=== PATIENT | female | born 1990 | race American Indian/Alaskan Native ===

== ENCOUNTER 2019-04-28 18:54 | Emergency (ER) | payer SELFPAY ==
--- NOTE | 2019-04-28 19:24 | Emergency Department Report ---
Blank Doc - Documentation Documentation: This is a 29-year-old female that presents with vaginal bleeding. Stated had a positive test. This initial assessment/diagnostic orders/clinical plan/treatment(s) is/are subject to change based on patient's health status, clinical progression and re- assessment by fellow clinical providers in the ED. Further treatment and workup at subsequent clinical providers discretion. Patient/guardians urged not to elope from the ED as their condition may be serious if not clinically assessed and managed. Initial orders include: 1- Patient sent to [facility] for further evaluation and treatment 2- labs 3- UA
[2019-04-28 19:45] LABS: Basophils # (Auto) 0.1 K/mm3 (0.0-0.1); Basophils % (Auto) 0.9 % (0.0-1.8); Eosinophils # (Auto) 0.1 K/mm3 (0.0-0.4); Eosinophils % (Auto) 1.7 % (0.0-4.3); Hematocrit 36.2 % (30.3-42.9); Hemoglobin 12.1 gm/dl (10.1-14.3); Lymphocytes # (Auto) 2.4 K/mm3 (1.2-5.4); Lymphocytes % (Auto) 35.8 % (13.4-35.0); Mean Corpuscular HGB Conc 34 % (30-34); Mean Corpuscular Volume 87 fl (79-97); Monocytes # (Auto) 0.3 K/mm3 (0.0-0.8); Monocytes % (Auto) 5.2 % (0.0-7.3); Platelet Count 369 K/mm3 (140-440); Red Blood Count 4.14 M/mm3 (3.65-5.03); Red Cell Distribution Width 15.8 % (13.2-15.2)
[2019-04-28 20:38] LABS: Bilirubin,Urine NEG (Negative); Blood,Urine SM (Negative); Color,Urine Yellow (Yellow); Mucus,Urine FEW /HPF; Protein,Urine <15 mg/dL mg/dL (Negative); Urobilinogen,Urine < 2.0 mg/dL (<2.0)
--- NOTE | 2019-04-28 20:44 | Emergency Department Report ---
ED HPI - General Chief complaint: Vaginal Bleeding Stated complaint: POSS MISCARRIAGE/VG BLEEDING Time Seen by Provider: 04/28/19 19:23 Source: patient Mode of arrival: Ambulatory Limitations: No Limitations - History of Present Illness Initial comments: Patient is a 29-year-old femalein acute past history is presenting with, occasional with her . Patient states her last missed her period was 03/21/2019. Patient's states that earlier this morning she started having some spotting which has progressed 2. Heavy menstrual flow. Patient is not sure of her dates has not had OF YET THIS . PATIENT STATES SHE DOES HAVE SOME MILD CRAMPINESS IN THE SUPRAPUBIC REGION. PATIENT STATES THAT THERE WERE SMALL AMOUNT OF CLOTS EXPRESSED. PATIENT DENIES FEVERS CHILLS NAUSEA VOMITING DIARRHEA. - Related Data Previous Rx's Medication Instructions Recorded Last Taken Type Nitrofurantoin [place]/M-Cryst 100 mg PO Q12HR #14 capsule 04/28/19 Unknown Rx [Macrobid CAP] Allergies Allergy/AdvReac Type Severity Reaction Status Date / Time banana Allergy Itching Verified 04/28/19 18:58 nut - unspecified Allergy Hives Verified 04/28/19 18:58 ED Review of Systems ROS: Stated complaint: POSS MISCARRIAGE/VG BLEEDING Other details as noted in HPI Comment: All other systems reviewed and negative ED Past Medical Hx - Past Medical History Previous Medical History?: No Hx Hypertension: No Hx Diabetes: No Hx Deep Vein Thrombosis: No Hx Renal Disease: No Hx Sickle Cell Disease: No Hx Seizures: No Hx Asthma: No Hx HIV: No - Surgical History Past Surgical History?: No - Social History Smoking Status: Current Every Day Smoker Substance Use Type: None - Medications Home Medications: Home Medications Medication Instructions Recorded Confirmed Last Taken Type Nitrofurantoin [place]/M-Cryst 100 mg PO Q12HR #14 capsule 04/28/19 Unknown Rx [Macrobid CAP] ED Physical Exam - General Limitations: No Limitations General appearance: alert, in no apparent distress - Head Head exam: Present: atraumatic, normocephalic - Eye Eye exam: Present: normal appearance - ENT ENT exam: Present: mucous membranes moist - Neck Neck exam: Present: normal inspection - Respiratory Respiratory exam: Present: normal lung sounds bilaterally. Absent: respiratory distress, wheezes, rales, rhonchi - Cardiovascular Cardiovascular Exam: Present: regular rate, normal rhythm. Absent: systolic murmur, diastolic murmur, rubs, gallop - GI/Abdominal GI/Abdominal exam: Present: soft, tenderness (mild tenderness in the suprapubic region), normal bowel sounds. Absent: distended, guarding, rebound - Extremities Exam Extremities exam: Present: normal inspection - Back Exam Back exam: Present: normal inspection - Neurological Exam Neurological exam: Present: alert, oriented X3 - Psychiatric Psychiatric exam: Present: normal affect, normal mood - Skin Skin exam: Present: warm, dry, intact, normal color. Absent: rash ED Course Vital Signs 04/28/19 19:24 Temperature 99 F Pulse Rate 96 H Respiratory 14 Rate Blood Pressure 136/86 O2 Sat by Pulse 100 Oximetry ED Medical Decision Making - Lab Data Result diagrams: 04/28/19 19:29 Lab Results 04/28/19 04/28/19 04/28/19 Range/Units 19:21 19:29 19:29 WBC 6.6 (4.5-11.0) K/mm3 RBC 4.14 (3.65-5.03) M/mm3 Hgb 12.1 (10.1-14.3) gm/dl Hct 36.2 (30.3-42.9) % MCV 87 (79-97) fl MCH 29 (28-32) pg MCHC 34 (30-34) % RDW 15.8 H (13.2-15.2) % Plt Count 369 (140-440) K/mm3 Lymph % (Auto) 35.8 H (13.4-35.0) % [place] % (Auto) 5.2 (0.0-7.3) % Eos % (Auto) 1.7 (0.0-4.3) % Baso % (Auto) 0.9 (0.0-1.8) % Lymph # 2.4 (1.2-5.4) K/mm3 [place] # 0.3 (0.0-0.8) K/mm3 Eos # 0.1 (0.0-0.4) K/mm3 Baso # 0.1 (0.0-0.1) K/mm3 Seg Neutrophils % 56.4 (40.0-70.0) % Seg Neutrophils # 3.7 (1.8-7.7) K/mm3 HCG, Quant 13402 H (0-4) mIU/mL Urine Color (Yellow) Urine Turbidity (Clear) Urine pH (5.0-7.0) Ur Specific [place] (1.003-1.030) Urine Protein (Negative) mg/dL Urine Glucose (UA) (Negative) mg/dL Urine Ketones (Negative) mg/dL Urine Blood (Negative) Urine Nitrite (Negative) Urine Bilirubin (Negative) Urine Urobilinogen (<2.0) mg/dL Ur Leukocyte Esterase (Negative) Urine WBC (Auto) (0.0-6.0) /HPF Urine RBC (Auto) (0.0-6.0) /HPF U Epithel Cells (Auto) (0-13.0) /HPF Urine Mucus /HPF Blood Type A POSITIVE 04/28/19 Range/Units 20:00 WBC (4.5-11.0) K/mm3 RBC (3.65-5.03) M/mm3 Hgb (10.1-14.3) gm/dl Hct (30.3-42.9) % MCV (79-97) fl MCH (28-32) pg MCHC (30-34) % RDW (13.2-15.2) % Plt Count (140-440) K/mm3 Lymph % (Auto) (13.4-35.0) % [place] % (Auto) (0.0-7.3) % Eos % (Auto) (0.0-4.3) % Baso % (Auto) (0.0-1.8) % Lymph # (1.2-5.4) K/mm3 [place] # (0.0-0.8) K/mm3 Eos # (0.0-0.4) K/mm3 Baso # (0.0-0.1) K/mm3 Seg Neutrophils % (40.0-70.0) % Seg Neutrophils # (1.8-7.7) K/mm3 HCG, Quant (0-4) mIU/mL Urine Color Yellow (Yellow) Urine Turbidity Clear (Clear) Urine pH 5.0 (5.0-7.0) Ur Specific [place]rier 1.025 (1.003-1.030) Urine Protein <15 mg/dl (Negative) mg/dL Urine Glucose (UA) Neg (Negative) mg/dL Urine Ketones Tr (Negative) mg/dL Urine Blood Sm (Negative) Urine Nitrite Neg (Negative) Urine Bilirubin Neg (Negative) Urine Urobilinogen < 2.0 (<2.0) mg/dL Ur Leukocyte Esterase Sm (Negative) Urine WBC (Auto) 13.0 H (0.0-6.0) /HPF Urine RBC (Auto) 3.0 (0.0-6.0) /HPF U Epithel Cells (Auto) 4.0 (0-13.0) /HPF Urine Mucus Few /HPF Blood Type - Radiology Data [facility] [address] [place] [address] Ultrasound Report Signed Patient: ANNETTE THOMPSON MR#: [id number] : 1990 Acct:[id number] Age/Sex: 29 / F ADM Date: 04/28/19 Loc: ED Attend ing Dr: Ordering Physician: MATI ARTEAGA MD Date of Service: 04/28/19 Procedure(s): US OB <= 14 weeks fetus Accession Number(s): [id number] cc: MATI ARTEAGA MD ULTRASOUND OBSTETRIC INDICATION / CLINICAL INFORMATION: preg with abd pain/bleeding. Clinical Gestational Age (GA): 5 weeks 3 days TECHNIQUE: Transabdominal and Transvaginal. COMPARISON: None available. FINDINGS: GESTATIONAL SAC: Well-defined oval shape and intrauterine in location. YOLK SAC: No significant abnormality. EMBRYO/FETUS: No significant abnormality. - [place]- Rump Length = 0.48 cm = 6 weeks, 1 day(s). - Heart Rate, beats per minute (if present) = none detected ADNEXA: 1.9 cm right ovarian cyst, possibly corpus luteum cyst. Left ovary appears normal. FREE FLUID: None. ADDITIONAL FINDINGS: None. IMPRESSION: 1. Intrauterine gestation with estimated sonographic age of 6 weeks 1 day. 2. No embryonic cardiac activity at this time. Repeat ultrasound in 7-10 days is recommended. Signer Name: Kj Benito MD Signed: 04/28/2019 9:05 PM Workstation Name: [id number] Transcribed By: DT Dictated By: Dank Benito MD Electronically Authenticated By: Dank Benito MD Signed Date/Time: 04/28/192104 DD/ 01 TD/TT: - Medical Decision Making Patient is a 29-year-old [place]ian female who is presenting with some vaginal bleeding. Patient had SOUND done which shows that she does have IUP however there is no cardiac activity at this time. Patient is 6 weeks therefore she is on the border for seeing cardiac activity. Patient will have repeat ultrasound and clot in the week. Patient given instructions on things to come back to the emergency department for. Patient also given [facility] for follow-up. Patient does have evidence of a early UTI and started on antibiotics. The patient be discharged home with pelvic rest instructions on threatened miscarriage. Critical care attestation.: If time is entered above; I have spent that time in minutes in the direct care of this critically ill patient, excluding procedure time. ED Disposition Clinical Impression: Threatened miscarriage, UTI in Disposition: DC- TO HOME OR SELFCARE Is pt being admited?: No Does the pt Need Aspirin: No Condition: Stable Instructions: Threatened Miscarriage (ED), Urinary Tract Infection in Women (ED) Referrals: [facility] [Provider Group] - 3-5 Days Time of Disposition: 21:29
--- NOTE | 2019-04-28 21:10 | Ultrasound Report ---
ULTRASOUND OBSTETRIC INDICATION / CLINICAL INFORMATION: preg with abd pain/bleeding. Clinical Gestational Age (GA): 5 weeks 3 days TECHNIQUE: Transabdominal and Transvaginal. COMPARISON: None available. FINDINGS: GESTATIONAL SAC: Well-defined oval shape and intrauterine in location. YOLK SAC: No significant abnormality. EMBRYO/FETUS: No significant abnormality. - [place]-Rump Length = 0.48 cm = 6 weeks, 1 day(s). - Heart Rate, beats per minute (if present) = none detected ADNEXA: 1.9 cm right ovarian cyst, possibly corpus luteum cyst. Left ovary appears normal. FREE FLUID: None. ADDITIONAL FINDINGS: None. IMPRESSION: 1. Intrauterine gestation with estimated sonographic age of 6 weeks 1 day. 2. No embryonic cardiac activity at this time. Repeat ultrasound in 7-10 days is recommended. Signer Name: Kj Benito MD Signed: 04/28/2019 9:05 PM Workstation Name: [id number]
--- NOTE | 2019-04-28 21:10 | Ultrasound Report ---
ULTRASOUND OBSTETRIC INDICATION / CLINICAL INFORMATION: preg with abd pain/bleeding. Clinical Gestational Age (GA): 5 weeks 3 days TECHNIQUE: Transabdominal and Transvaginal. COMPARISON: None available. FINDINGS: GESTATIONAL SAC: Well-defined oval shape and intrauterine in location. YOLK SAC: No significant abnormality. EMBRYO/FETUS: No significant abnormality. - [place]-Rump Length = 0.48 cm = 6 weeks, 1 day(s). - Heart Rate, beats per minute (if present) = none detected ADNEXA: 1.9 cm right ovarian cyst, possibly corpus luteum cyst. Left ovary appears normal. FREE FLUID: None. ADDITIONAL FINDINGS: None. IMPRESSION: 1. Intrauterine gestation with estimated sonographic age of 6 weeks 1 day. 2. No embryonic cardiac activity at this time. Repeat ultrasound in 7-10 days is recommended. Signer Name: Kj Benito MD Signed: 04/28/2019 9:05 PM Workstation Name: [id number]
[2019-04-28 21:57] VITALS: BP 122/74
== END 2019-04-28 21:56 | disposition home or self-care (01) ==
LOC: ED 18:54
DX: O02.1 Missed abortion (principal); O23.41 Unspecified infection of urinary tract in pregnancy, first trimester; Z91.010 Allergy to peanuts; Z91.018 Allergy to other foods; O99.331 Smoking (tobacco) complicating pregnancy, first trimester; Z3A.01 Less than 8 weeks gestation of pregnancy
CPT/HCPCS: 36415; 76801; 76817; 81001; 84702; 85025; 86850; 86900; 86901; 87086; 99284